=== PATIENT | male | born 1995 | race Caucasian/White ===

== ENCOUNTER 2024-06-05 21:10 | Emergency (ER) | payer SELFPAY ==
[~2024-06-05] VITALS: Ht 185.4 cm; Wt 113.6 kg
[2024-06-05 21:31] VITALS: TEMP 98.4
[2024-06-05] MEDS ORDERED: Acetaminophen 325 MG TAB PO ONE (23:45)
[2024-06-06] MEDS ORDERED: Tdap Vaccine 0.5 ML SYRINGE IM ONE (00:15)
[2024-06-06 01:20] VITALS: BP 141/93; PULSE 84
== END 2024-06-06 01:20 | disposition home or self-care (01) ==
LOC: COL.ER 21:10
DX: S01.111A Laceration without foreign body of right eyelid and periocular area, initial encounter (principal); Z23 Encounter for immunization; V19.9XXA Pedal cyclist (driver) (passenger) injured in unspecified traffic accident, initial encounter